=== PATIENT | female | born 1995 | race Caucasian/White ===

== ENCOUNTER → 2016-10-16 | Outpatient (CLI) | payer BC ==
--- NOTE | 2016-10-16 13:50 | RAD ---
Ultrasound abdomen 10/16/2016 at 0930 hours Indication: Elevated LFTs Comparison: None available Technique: Grayscale and color Doppler sonographic imaging of the abdomen was performed. Findings: There is increased echogenicity of the liver parenchyma compatible with hepatocellular disease, most commonly seen with hepatic steatosis. This limits evaluation for underlying mass. Liver measures maximally 18.9 cm. Gallbladder is normal in appearance without evidence for gallstones, collateral wall thickening or pericholecystic fluid. Negative sonographic Pulliam's sign. Common bile duct measures 3 mm. Spleen measures 12.2 cm in maximal dimension and is normal. Right kidney measures 12.1 x 5.5 x 4.2 cm. The left kidney measures 13.2 x 5.5 x 4.5 cm. The kidneys are normal in appearance. No hydronephrosis, renal calculi or contour deforming mass. Pancreas is poorly visualized as it is obscured by overlying bowel gas. The aorta is normal as visualized. IVC is patent. There is no free fluid within the abdomen. Impression: 1. Increased echogenicity of the hepatic parenchyma is compatible with hepatocellular disease, most commonly seen with hepatic steatosis. This limits evaluation for underlying masses. 2. No evidence for cholelithiasis. No extrahepatic biliary ductal dilatation.
== END | disposition home or self-care (01) ==
LOC: US 08:44
PROVIDERS: ATTEND Family Medicine
DX: K76.0 Fatty (change of) liver, not elsewhere classified (principal); R79.89 Other specified abnormal findings of blood chemistry; R74.8 Abnormal levels of other serum enzymes
CPT/HCPCS: 76700

== ENCOUNTER 2018-05-29 23:22 | Emergency (ER) | payer BC ==
--- NOTE | 2018-05-29 23:26 | ED.ADGEN ---
Adult General Chief Complaint Chief Complaint ".. My Lt ear feels like it is going to explode.. " HPI HPI Patient is a 23 year old female who presents with above hx with complaints left ear pain and feeling of pressure. Patient has external and middle ear otitis. No history immunosuppression. No history of travel. Patient normally healthy. Does not have frequent ear infections. Has had a mild upper respiratory infection and congestion prior to the ear pain. Review of Systems Review of Systems Constitutional: Denies fever or chills [] Eyes: Denies change in visual acuity, redness, or eye pain [] HENT: Hx. nasal congestion and left ear pain Respiratory: Denies cough or shortness of breath [] Cardiovascular: No additional information not addressed in HPI [] GI: Denies abdominal pain, nausea, vomiting, bloody stools or diarrhea [] : Denies dysuria or hematuria [] Musculoskeletal: Denies back pain or joint pain [] Integument: Denies rash or skin lesions [] Neurologic: Denies headache, focal weakness or sensory changes [] Endocrine: Denies polyuria or polydipsia [] All other systems were reviewed and found to be within normal limits, except as documented in this note. Family History Family History Noncontributory Current Medications Current Medications Current Medications Medications (Trade) Dose Ordered Sig/Leonarda Start Time Stop Time Status Last Admin Dose Admin Acetaminophen (Tylenol) 500 mg STK-MED ONCE 05/30/18 00:06 05/30/18 00:17 DC Cephalexin HCl (Keflex) 250 mg STK-MED ONCE 05/30/18 00:06 05/30/18 00:16 DC Neomycin/ Polymyxin/ Hydrocortisone (Cortisporin Otic) 1 drop 1X ONCE 05/29/18 23:30 05/29/18 23:39 DC 05/30/18 00:11 1 DROP Allergies Allergies Allergies Coded Allergies Type Severity Reaction Last Updated Verified No Known Drug Allergies 05/30/18 No Physical Exam Physical Exam Constitutional: Moderately acute distress, non-toxic appearance. [] HENT: Normocephalic, atraumatic, left external ears ejected, TM on left injected and swollen , oropharynx moist, no oral exudates, nose swollen turbinates and clear rhinorrhea Eyes: PERRLA, EOMI, conjunctiva normal, no discharge. [] Neck: Normal range of motion, no tenderness, supple, no stridor. [] Cardiovascular:Heart rate regular rhythm, no murmur [] Lungs & Thorax: Bilateral breath sounds clear to auscultation [] Abdomen: Bowel sounds normal, soft, no tenderness, no masses, no pulsatile masses. Mildly obese Skin: Warm, dry, no erythema, no rash. [] Back: No tenderness, no CVA tenderness. [] Extremities: No tenderness, no cyanosis, no clubbing, ROM intact, no edema. [] Neurologic: Alert and oriented X 3, normal motor function, normal sensory function, no focal deficits noted. [] Psychologic: Affect anxious, judgement normal, mood normal. [] EKG EKG [] Radiology/Procedures Radiology/Procedures [] Course & Med Decision Making Course & Med Decision Making Pertinent Labs and Imaging studies reviewed. (See chart for details). Take Tylenol and ibuprofen as needed for discomfort and fever. Take Benadryl 25- 50 mg 4 times a day for congestion and drainage. Take Keflex 500 mg 3 times a day for 10 days. Use Cortisporin ear drops 2 drops left ear 4 times a day. Follow-up primary care. Return of any concerns. [] Final Impression Final Impression 1. Otitis media and externa left ear [] Dragon Disclaimer Dragon Disclaimer This electronic medical record was generated, in whole or in part, using a voice recognition dictation system. Dragon Disclaimer This chart was dictated in whole or in part using Voice Recognition software in a busy, high-work load, and often noisy Emergency Department environment. It may contain unintended and wholly unrecognized errors or omissions. Dragon Disclaimer This chart was dictated in whole or in part using Voice Recognition software in a busy, high-work load, and often noisy Emergency Department environment. It may contain unintended and wholly unrecognized errors or omissions. Discharge Summary Visit Information Final Diagnosis Problems Medical Problems: (1) Otitis Status: Acute Brief Hospital Course Allergies Allergies Coded Allergies Type Severity Reaction Last Updated Verified No Known Drug Allergies 05/30/18 No Brief Hospital Course Ms. Lucas is a 23 old female who presented with Lt otitis. Discharge Information Condition at Discharge: Improved, Stable Disposition/Orders: D/C to Home Dischare Medications Current Medications Neomycin/ Polymyxin/ Hydrocortisone (Cortisporin Otic) 1 drop 1X ONCE AD Last administered on 05/30/18at 00:11; Admin Dose 1 DROP; Start 05/29/18 at 23:30; Stop 05/29/18 at 23:39; Status DC Cephalexin HCl (Keflex) 500 mg 1X ONCE PO Last administered on 05/30/18at 00:11 ; Admin Dose 500 MG; Start 05/29/18 at 23:45; Stop 05/30/18 at 00:16; Status DC Acetaminophen (Tylenol) 1,000 mg 1X ONCE PO Last administered on 05/30/18at 00: 11; Admin Dose 1,000 MG; Start 05/29/18 at 23:45; Stop 05/30/18 at 00:17; Status DC Cephalexin HCl (Keflex) 250 mg STK-MED ONCE .ROUTE ; Start 05/30/18 at 00:06; Stop 05/30/18 at 00:16; Status DC Acetaminophen (Tylenol) 500 mg STK-MED ONCE PO ; Start 05/30/18 at 00:06; Stop 05/30/18 at 00:17; Status DC Active Scripts Active Keflex (Cephalexin) 500 Mg Capsule 500 Mg PO TID 10 Days Discharge Summary Visit Information Final Diagnosis Problems Medical Problems: (1) Otitis Status: Acute Brief Hospital Course Allergies Allergies Coded Allergies Type Severity Reaction Last Updated Verified No Known Drug Allergies 05/30/18 No Brief Hospital Course Ms. Lucas is a 23 old [sex] who presented with [ ] Discharge Information Dischare Medications Current Medications Neomycin/ Polymyxin/ Hydrocortisone (Cortisporin Otic) 1 drop 1X ONCE AD Last administered on 05/30/18at 00:11; Admin Dose 1 DROP; Start 05/29/18 at 23:30; Stop 05/29/18 at 23:39; Status DC Cephalexin HCl (Keflex) 500 mg 1X ONCE PO Last administered on 05/30/18at 00:11 ; Admin Dose 500 MG; Start 05/29/18 at 23:45; Stop 05/30/18 at 00:16; Status DC Acetaminophen (Tylenol) 1,000 mg 1X ONCE PO Last administered on 05/30/18at 00: 11; Admin Dose 1,000 MG; Start 05/29/18 at 23:45; Stop 05/30/18 at 00:17; Status DC Cephalexin HCl (Keflex) 250 mg STK-MED ONCE .ROUTE ; Start 05/30/18 at 00:06; Stop 05/30/18 at 00:16; Status DC Acetaminophen (Tylenol) 500 mg STK-MED ONCE PO ; Start 05/30/18 at 00:06; Stop 05/30/18 at 00:17; Status DC Active Scripts Active Keflex (Cephalexin) 500 Mg Capsule 500 Mg PO TID 10 Days CHARLY LO MD May 29, 2018 23:26
[2018-05-29 23:30] VITALS: BP 134/87
[2018-05-29] MEDS ORDERED: NEOMYCIN/POLYMYXIN/HC OTIC SUSPENSION 10ML BOTTLE. AD ONE (23:30)
[2018-05-29] MEDS ORDERED: ACETAMINOPHEN 500 MG TABLET PO ONE (23:45)
[2018-05-29] MEDS ORDERED: CEPHALEXIN 250 MG CAPSULE PO ONE (23:45)
[2018-05-29] MEDS ORDERED: CEPH-264 PO (23:48)
[2018-05-30] MEDS ORDERED: ACETAMINOPHEN 500 MG TABLET PO ONE (00:06)
[2018-05-30] MEDS ORDERED: CEPHALEXIN 250 MG CAPSULE ONE (00:06)
== END 2018-05-30 00:15 | disposition home or self-care (01) ==
LOC: ER 23:22
DX: H66.92 Otitis media, unspecified, left ear (principal); H60.92 Unspecified otitis externa, left ear
CPT/HCPCS: 99284